=== PATIENT | female | born 1940 | race Caucasian/White ===

== ENCOUNTER 2024-01-16 15:54 | Inpatient (IN) ==
[2024-01-16] MEDS ORDERED: IOPAMIDOL 100 ML BOTTLE IV ONE (15:55)
[2024-01-16] MEDS ORDERED: HYDROmorphone 0.5 MG/0.5 ML SYRINGE IV PRN (18:45)
[2024-01-16] MEDS ORDERED: fentaNYL 100 MCG/2 ML VIAL IV PRN (19:53)
[2024-01-16] MEDS: ONDANSETRON 4 MG/2 ML VIAL IV PRN (20:29)
[2024-01-16 20:32] LABS: Prothrombin Time 13.4 sec (11.9-14.5)
[2024-01-16] MEDS: 0.9 % SODIUM CHLORIDE 1,000 ML IV SCH (21:26)
[2024-01-16] MEDS: CEFEPIME 1 GM VIAL IV ONE (23:46)
[2024-01-16] MEDS: CEFEPIME 1 GM VIAL IV SCH (23:50)
[2024-01-17 06:44] LABS: Appearance,Urine CLOUDY (Clear); Bilirubin,Urine Negative (Negative); Calcium Oxalate Crystals,Urine MOD /hpf; Color,Urine AMBER; Glucose,Urine (UA) Negative (Negative); Ketones,Urine Negative (Negative); Leukocyte Esterase,Urine 500 /uL (Negative); Mucus,Urine MANY /hpf; Nitrate,Urine Negative (Negative); Protein,Urine Negative (Negative); Urine Blood Negative (Negative); Urine RBC 13 /hpf (0-3); Urine Squamous Epithelial Cell < 1 /hpf (0-4); Urine WBC > 182 /hpf (0-4); Urobilinogen,Urine Negative
[2024-01-17 06:44] LABS: Basophils # (Auto) 0.01 K/mcL (0.00-0.30); Basophils % (Auto) 0.1 % (0.0-2.0); Eosinophils # (Auto) 0.05 K/mcL (0.00-0.70); Eosinophils % (Auto) 0.5 % (0.0-7.0); Hematocrit 45.1 % (34.1-44.9); Hemoglobin 14.8 g/dL (11.2-15.7); Lymphocytes # (Auto) 3.01 K/mcL (1.50-4.80); Lymphocytes % (Auto) 28.8 % (15.5-49.0); Mean Cell Volume 100.2 fL (80.0-100.0); Mean Corpuscular HGB Conc 32.8 g/dL (31.0-36.0); Mean Platelet Volume 10.3 fL (8.8-12.5); Monocytes # (Auto) 1.03 K/mcL (0.10-0.90); Monocytes % (Auto) 9.8 % (1.0-12.0); Neutrophils % (Auto) 60.6 % (38.0-78.0); Platelet Count 233 K/mcL (140-440); Red Cell Distribution Width 12.4 % (11.5-14.5); WBC 10.5 K/mcL (4.5-11.0)
[2024-01-17 07:08] LABS: ALT/SGPT 15 U/L (<40); AST/SGOT 27 U/L (<32); Albumin 4.2 gm/dL (3.2-5.2); Albumin/Globulin Ratio 1.5 (1.0-2.3); Alkaline Phosphatase 123 U/L (39-117); Bilirubin,Direct 0.2 mg/dL (<0.3); Bilirubin,Total 0.7 mg/dL (0.1-1.0); Blood Urea Nitrogen 14 mg/dL (8-23); Calcium 9.7 mg/dL (8.6-10.4); Carbon Dioxide 25 mmol/L (22-30); Chloride 99 mmol/L (96-108); Globulin 2.8 gm/dL (2.2-3.7); Glomerular Filtration Rate 69; Glucose 106 mg/dL (70-105); Lactate Dehydrogenase 207 U/L (135-225); Phosphorous 5.3 mg/dL (2.5-4.5); Sodium 140 mmol/L (133-145); Triglycerides 50 mg/dL (<150); Uric Acid 6.5 mg/dL (2.5-8.0)
[2024-01-17] MEDS: CEFEPIME 1 GM VIAL IV SCH (08:19)
[2024-01-17] MEDS ORDERED: CEFEPIME 1 GM VIAL IV SCH (09:00)
[2024-01-17] MEDS: METOCLOPRAMIDE 10 MG/2 ML VIAL IV SCH (11:38)
[2024-01-17] MEDS: DEXTROSE 5%-NS 1,000 ML IV SCH (17:24)
[2024-01-18 07:18] LABS: ALT/SGPT 7 U/L (<40); AST/SGOT 23 U/L (<32); Albumin 3.4 gm/dL (3.2-5.2); Albumin/Globulin Ratio 1.4 (1.0-2.3); Alkaline Phosphatase 98 U/L (39-117); Bilirubin,Direct < 0.2 mg/dL (0-0.3); Bilirubin,Total 0.4 mg/dL (0.1-1.0); Blood Urea Nitrogen 13 mg/dL (8-23); Calcium 8.4 mg/dL (8.6-10.4); Carbon Dioxide 23 mmol/L (22-30); Chloride 109 mmol/L (96-108); Globulin 2.4 gm/dL (2.2-3.7); Glomerular Filtration Rate 85; Glucose 110 mg/dL (70-105); Lactate Dehydrogenase 170 U/L (135-225); Phosphorous 3.4 mg/dL (2.5-4.5); Potassium 3.6 mmol/L (3.3-5.1); Sodium 143 mmol/L (133-145); Triglycerides 60 mg/dL (<150); Uric Acid 5.7 mg/dL (2.5-8.0)
[2024-01-18] MEDS: POLYETHYLENE GLYCOL 3350 17 GM PACKET PO SCH (13:21)
[2024-01-18] MEDS: 0.9 % SODIUM CHLORIDE 10 ML SYRINGE IV SCH (21:11)
[2024-01-19] MEDS: CEFEPIME 1 GM VIAL IV SCH (02:18)
[2024-01-19 07:10] LABS: ALT/SGPT 10 U/L (<40); AST/SGOT 20 U/L (<32); Albumin 3.3 gm/dL (3.2-5.2); Albumin/Globulin Ratio 1.6 (1.0-2.3); Alkaline Phosphatase 91 U/L (39-117); Bilirubin,Direct < 0.2 mg/dL (0-0.3); Bilirubin,Total 0.3 mg/dL (0.1-1.0); Blood Urea Nitrogen 9 mg/dL (8-23); Calcium 8.4 mg/dL (8.6-10.4); Carbon Dioxide 26 mmol/L (22-30); Chloride 108 mmol/L (96-108); Globulin 2.1 gm/dL (2.2-3.7); Glomerular Filtration Rate 91; Glucose 120 mg/dL (70-105); Lactate Dehydrogenase 160 U/L (135-225); Phosphorous 2.7 mg/dL (2.5-4.5); Potassium 3.5 mmol/L (3.3-5.1); Sodium 142 mmol/L (133-145); Triglycerides 59 mg/dL (<150); Uric Acid 4.3 mg/dL (2.5-8.0)
[2024-01-19] MEDS: DEXTROSE 5%-NS 1,000 ML IV SCH (16:08)
[2024-01-19] MEDS: POLYETHYLENE GLYCOL 3350 17 GM PACKET PO SCH (16:54)
[2024-01-19] MEDS: 0.9 % SODIUM CHLORIDE 10 ML SYRINGE IV SCH (20:44)
[2024-01-21] MEDS: LOSARTAN 50 MG TABLET PO ONE (12:14)
[2024-01-21] MEDS: amLODIPine 10 MG TABLET PO ONE (12:14)
[2024-01-21 14:35] LABS: Basophils # (Auto) 0.02 K/mcL (0.00-0.30); Basophils % (Auto) 0.2 % (0.0-2.0); Eosinophils # (Auto) 0.01 K/mcL (0.00-0.70); Eosinophils % (Auto) 0.1 % (0.0-7.0); Hematocrit 40.7 % (34.1-44.9); Hemoglobin 13.5 g/dL (11.2-15.7); Lymphocytes # (Auto) 2.08 K/mcL (1.50-4.80); Lymphocytes % (Auto) 23.1 % (15.5-49.0); Mean Cell Volume 97.4 fL (80.0-100.0); Mean Corpuscular HGB Conc 33.2 g/dL (31.0-36.0); Monocytes # (Auto) 0.52 K/mcL (0.10-0.90); Monocytes % (Auto) 5.8 % (1.0-12.0); Neutrophils % (Auto) 70.5 % (38.0-78.0); Platelet Count 239 K/mcL (140-440); RBC 4.18 M/mcL (3.59-5.38)
[2024-01-21 14:57] LABS: ALT/SGPT 12 U/L (<40); AST/SGOT 24 U/L (<32); Albumin 3.8 gm/dL (3.2-5.2); Albumin/Globulin Ratio 1.4 (1.0-2.3); Alkaline Phosphatase 115 U/L (39-117); Bilirubin,Direct < 0.2 mg/dL (0-0.3); Bilirubin,Total 0.3 mg/dL (0.1-1.0); Blood Urea Nitrogen 11 mg/dL (8-23); Carbon Dioxide 27 mmol/L (22-30); Chloride 103 mmol/L (96-108); Globulin 2.8 gm/dL (2.2-3.7); Glomerular Filtration Rate 85; Glucose 110 mg/dL (70-105); Lactate Dehydrogenase 208 U/L (135-225); Phosphorous 3.8 mg/dL (2.5-4.5); Potassium 3.6 mmol/L (3.3-5.1); Sodium 142 mmol/L (133-145); Triglycerides 62 mg/dL (<150); Uric Acid 3.9 mg/dL (2.5-8.0)
[2024-01-21] MEDS: DEXTROSE 5%-NS 1,000 ML IV SCH (17:49)
[2024-01-22] MEDS: SULFAMETHOXAZOLE/TRIMETHOPRIM 1 TABLET PO SCH (08:51)
[2024-01-22] MEDS: LOSARTAN 50 MG TABLET PO SCH (08:51)
[2024-01-22] MEDS: amLODIPine 10 MG TABLET PO SCH (08:51)
[2024-01-22] MEDS: CEPHALEXIN 500 MG CAPSULE PO SCH (17:24)
[2024-01-23] MEDS ORDERED: PYRIDOSTIGMINE 60 MG TABLET PO SCH (15:00)
[2024-01-24 06:17] LABS: Basophils # (Auto) 0.02 K/mcL (0.00-0.30); Basophils % (Auto) 0.2 % (0.0-2.0); Eosinophils # (Auto) 0.17 K/mcL (0.00-0.70); Eosinophils % (Auto) 2.1 % (0.0-7.0); Hematocrit 32.9 % (34.1-44.9); Hemoglobin 11.3 g/dL (11.2-15.7); Lymphocytes # (Auto) 2.71 K/mcL (1.50-4.80); Lymphocytes % (Auto) 32.7 % (15.5-49.0); Mean Cell Volume 95.9 fL (80.0-100.0); Mean Corpuscular HGB Conc 34.3 g/dL (31.0-36.0); Mean Platelet Volume 9.9 fL (8.8-12.5); Monocytes # (Auto) 0.79 K/mcL (0.10-0.90); Monocytes % (Auto) 9.5 % (1.0-12.0); Neutrophils % (Auto) 55.3 % (38.0-78.0); Platelet Count 234 K/mcL (140-440); RBC 3.43 M/mcL (3.59-5.38); Red Cell Distribution Width 11.9 % (11.5-14.5); WBC 8.3 K/mcL (4.5-11.0)
[2024-01-24 06:50] LABS: ALT/SGPT 68 U/L (<40); AST/SGOT 37 U/L (<32); Albumin 3.2 gm/dL (3.2-5.2); Albumin/Globulin Ratio 1.5 (1.0-2.3); Alkaline Phosphatase 104 U/L (39-117); Bilirubin,Direct < 0.2 mg/dL (0-0.3); Bilirubin,Total 0.3 mg/dL (0.1-1.0); Blood Urea Nitrogen 6 mg/dL (8-23); Calcium 8.3 mg/dL (8.6-10.4); Carbon Dioxide 23 mmol/L (22-30); Chloride 108 mmol/L (96-108); Globulin 2.1 gm/dL (2.2-3.7); Glomerular Filtration Rate 91; Glucose 116 mg/dL (70-105); Lactate Dehydrogenase 193 U/L (135-225); Phosphorous 2.7 mg/dL (2.5-4.5); Potassium 2.8 mmol/L (3.3-5.1); Sodium 143 mmol/L (133-145); Triglycerides 79 mg/dL (<150); Uric Acid 2.1 mg/dL (2.5-8.0)
[2024-01-24] MEDS ORDERED: POTASSIUM CHLORIDE 40 MEQ in DEXTROSE 5% IN WATER 500 ML IV ONE ×2 (09:00→14:00)
[2024-01-24] MEDS: POTASSIUM CHLORIDE 10 MEQ/100 ML BAG IV SCH ×2 (10:25→14:35)
[2024-01-26 06:04] LABS: Basophils # (Auto) 0.04 K/mcL (0.00-0.30); Basophils % (Auto) 0.4 % (0.0-2.0); Eosinophils # (Auto) 0.13 K/mcL (0.00-0.70); Eosinophils % (Auto) 1.3 % (0.0-7.0); Hematocrit 35.2 % (34.1-44.9); Hemoglobin 12.1 g/dL (11.2-15.7); Lymphocytes # (Auto) 2.67 K/mcL (1.50-4.80); Mean Cell Volume 94.6 fL (80.0-100.0); Mean Corpuscular HGB Conc 34.4 g/dL (31.0-36.0); Monocytes # (Auto) 0.84 K/mcL (0.10-0.90); Monocytes % (Auto) 8.2 % (1.0-12.0); Platelet Count 285 K/mcL (140-440); RBC 3.72 M/mcL (3.59-5.38); Red Cell Distribution Width 12.2 % (11.5-14.5); WBC 10.3 K/mcL (4.5-11.0)
[2024-01-26 06:36] LABS: ALT/SGPT 53 U/L (<40); AST/SGOT 26 U/L (<32); Albumin 3.5 gm/dL (3.2-5.2); Albumin/Globulin Ratio 1.5 (1.0-2.3); Alkaline Phosphatase 115 U/L (39-117); Bilirubin,Direct < 0.2 mg/dL (0-0.3); Bilirubin,Total 0.3 mg/dL (0.1-1.0); Blood Urea Nitrogen 6 mg/dL (8-23); Calcium 8.9 mg/dL (8.6-10.4); Carbon Dioxide 25 mmol/L (22-30); Chloride 104 mmol/L (96-108); Globulin 2.4 gm/dL (2.2-3.7); Glomerular Filtration Rate 91; Glucose 106 mg/dL (70-105); Lactate Dehydrogenase 209 U/L (135-225); Phosphorous 3.9 mg/dL (2.5-4.5); Sodium 142 mmol/L (133-145); Triglycerides 75 mg/dL (<150); Uric Acid 1.9 mg/dL (2.5-8.0)
[2024-01-26] MEDS ORDERED: PROMETHAZINE 50 MG/ML AMPUL IM PRN (12:17)
[2024-01-26] MEDS: PROMETHAZINE 50 MG/ML AMPUL IM SCH (12:33)
[2024-01-26] MEDS: POTASSIUM CHLORIDE 10 MEQ/100 ML BAG IV SCH (13:29)
[2024-01-26] MEDS: POTASSIUM CHLORIDE 40 MEQ in DEXTROSE 5% IN WATER 500 ML IV ONE (14:15)
[2024-01-26] MEDS: BISMUTH SUBSALICYLATE 15 ML ORAL.SUSP PO PRN (19:19)
[2024-01-27 11:23] LABS: ALT/SGPT 47 U/L (<40); AST/SGOT 29 U/L (<32); Albumin 3.6 gm/dL (3.2-5.2); Albumin/Globulin Ratio 1.3 (1.0-2.3); Alkaline Phosphatase 124 U/L (39-117); Bilirubin,Direct < 0.2 mg/dL (0-0.3); Bilirubin,Total 0.4 mg/dL (0.1-1.0); Blood Urea Nitrogen 9 mg/dL (8-23); Calcium 9.2 mg/dL (8.6-10.4); Carbon Dioxide 19 mmol/L (22-30); Chloride 108 mmol/L (96-108); Globulin 2.8 gm/dL (2.2-3.7); Glomerular Filtration Rate 81; Glucose 93 mg/dL (70-105); Lactate Dehydrogenase 237 U/L (135-225); Phosphorous 3.9 mg/dL (2.5-4.5); Potassium 3.9 mmol/L (3.3-5.1); Sodium 140 mmol/L (133-145); Triglycerides 78 mg/dL (<150); Uric Acid 2.7 mg/dL (2.5-8.0)
[2024-01-27] MEDS: LOPERAMIDE 2 MG CAPSULE PO PRN (14:24)
== END 2024-01-27 14:28 | DRG 389 ==
LOC: ED 15:54 → MEDSUR 20:27
PROVIDERS: ADMIT Family Medicine Adult Medicine; ATTEND Family Medicine Adult Medicine